=== PATIENT | male | born 1975 | race Caucasian/White ===

== ENCOUNTER 2016-12-21 04:18 | Emergency (ER) | payer OTHER ==
[~2016-12-21] VITALS: Ht 177.8 cm; Wt 70.3 kg
[~2016-12-21 04:18] MED LIST: MOBIC PO; PEN-VEE K PO; PHENERGAN25 M1 DOB; ULTRAM PO; VICODIN 5/500 T1 TAB PO
== END 2016-12-21 05:30 | disposition home or self-care (01) ==
LOC: CED 04:18 → SED 04:18 → CED 05:29
DX: K04.7 Periapical abscess without sinus (principal); F17.210 Nicotine dependence, cigarettes, uncomplicated
CPT/HCPCS: 99282